=== PATIENT | male | born 1945 | race Caucasian/White ===

== ENCOUNTER → 2020-05-28 07:08 | Outpatient (CLI) | payer OTHER, SELFPAY ==
[2020-05-19 09:28] VITALS: BMI 26.2
--- NOTE | 2020-05-28 07:09 | ECHOD_ITS ---
Reason For Study: CAD/ASHD Procedure This was a 2D Doppler, Color Flow transthoracic echocardiogram. Exam performed in department. Left Ventricle Normal LV size. The estimated ejection fraction is 50 %. Mild segmental systolic dysfunction (see wall motion). Stage 1 diastolic dysfunction. Mid-Inferior: Akinetic. Mid-Posterior: Hypokinetic. The rest of the wall segments are normal. Right Ventricle Normal RV size. Normal systolic function. Atria Normal left atrium. Normal right atrium. Mitral Valve There is mild mitral annular calcification. Mild (1+) eccentric mitral valve insufficiency. Tricuspid Valve Normal tricuspid valve. Aortic Valve Trisinus/trileaflet aortic valve. Pulmonic Valve Normal pulmonic valve. Great Vessels Normal aortic root. The pulmonary artery is normal size. Normal inferior vena cava. Pericardium/Pleural No pericardial effusion. MMode/2D Measurements & Calculations LVIDd: 5.4 cm IVSd: 1.1 cm Ao root diam: 3.0 cm LVIDs: 4.0 cm LVPWd: 0.90 cm RVDd: 3.2 cm FS: 26.1 % LAV(MOD-bp): 38.7 ml LVAd ap4: 34.5 cm2 SV(MOD-sp4): 62.0 ml LAV(MOD-bp) Indexed: 20.7 ml/m2 EDV(MOD-sp4): 117.7 ml LAV(MOD-sp2): 46.6 ml EDV(sp4-el): 120.6 ml LAV(MOD-sp4): 29.2 ml LVAs ap4: 21.6 cm2 ESV(MOD-sp4): 55.6 ml ESV(sp4-el): 54.5 ml EF(MOD-sp4): 52.7 % EF(sp4-el): 54.8 % SV(sp4-el): 66.1 ml LA A4 area: 12.2 cm2 LA dimension(2D): 4.0 cm RA A4 area: 14.1 cm2 Doppler Measurements & Calculations MV E max endy: 69.8 cm/sec Lat Peak E' Endy: 8.6 cm/sec Med Peak E' Endy: 4.4 cm/sec MV A max endy: 86.8 cm/sec E/E' lat: 8.1 E/E' med: 15.9 MV E/A: 0.80 Ao V2 max: 121.0 cm/sec LV V1 max: 68.3 cm/sec PA V2 max: 137.7 cm/sec Ao max P.9 mmHg LV V1 max P.9 mmHg Ao V2 mean: 80.1 cm/sec Ao mean P.8 mmHg Ao V2 VTI: 28.1 cm Interpretation Summary Normal LV size. The estimated ejection fraction is 50 %. Mild segmental systolic dysfunction (see wall motion). Stage 1 diastolic dysfunction. Compared to previous study, the left ventricular systolic function has improved.. Ordering Physician: Elvin Hansen Referring Physician: Ric Callaway Performed By: Edwina Davalos, KELSEY, RVT
--- NOTE | 2020-05-28 12:27 | STRESSREP ---
Stress Test Report Exercise myocardial perfusion stress test. 74-year-old man with history of coronary artery disease status post angioplasty and stent. Medications aspirin Multivite amlodipine atorvastatin. Stress protocol: Resting EKG demonstrates normal sinus rhythm with a rate of 57 bpm normal intervals are noted resting blood pressure is 132/70 mmHg. The patient exercised according to regular Fei protocol for a total duration of 7 minutes. The maximum heart rate attained was 134 bpm which was 90% of maximum predicted heart rate the maximum workload was 8.5 metabolic equivalents. At rest there were no ST or T wave changes noted to suggest ischemia at peak exercise upsloping ST changes only were noted we did not meet the criteria for ischemia. No clinical angina was noted. The resting blood pressure was 132/70 with a peak blood pressure 164/78 mmHg. The test was terminated due to dyspnea. Occasional premature ventricular complexes were noted. Myocardial perfusion protocol. 11.5 mCi of technetium 99m sestamibi was injected at rest. The patient exercised according to regular Fei protocol for 7 minutes and at peak exercise 33.1 mCi of technetium 99m sestamibi was injected stress images were obtained stress and rest images were reconstructed and compared in the short axis vertical long horizontal long axis. Gated images were also obtained Perfusion SPECT analysis: Review of the images demonstrate normal cardiac silhouette size. There is a medium to large size defect noted involving the inferior wall. This is present on the stress images. The other stroud appear to be normally perfused. 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 Minimal improvement is noted to suggest ischemia. Gated SPECT analysis: The gated ejection fraction is 54%. Conclusion: Exercise myocardial perfusion stress test with evidence of moderate inferior infarct. No significant ischemia noted. Minimal blair-infarct ischemia present. Preserved ejection fraction. No angina noted.
== END ==
PROVIDERS: PCP Family Medicine; Referring Provider Internal Medicine Cardiovascular Disease; Visit Provider Internal Medicine Cardiovascular Disease
DX: I25.10 Atherosclerotic heart disease of native coronary artery without angina pectoris (principal); Z95.5 Presence of coronary angioplasty implant and graft
CPT/HCPCS: 78452; 93017; 93306; A9500; A4216

== ENCOUNTER → 2021-02-03 09:57 | Outpatient (CLI) | payer OTHER, SELFPAY ==
[2021-01-25 09:10] VITALS: BMI 26.2
== END ==
PROVIDERS: PCP Internal Medicine; Referring Provider Nurse Practitioner Family; Visit Provider Nurse Practitioner Family
DX: I25.10 Atherosclerotic heart disease of native coronary artery without angina pectoris (principal); I25.5 Ischemic cardiomyopathy; I10 Essential (primary) hypertension; E78.5 Hyperlipidemia, unspecified; Z95.5 Presence of coronary angioplasty implant and graft
CPT/HCPCS: 93225; 93226

== ENCOUNTER → 2021-02-24 15:10 | Outpatient (CLI) | payer OTHER, SELFPAY | PROVIDERS: PCP Internal Medicine; Referring Provider Physician Assistant Medical; Visit Provider Physician Assistant Medical | DX: U07.1 COVID-19 (principal) | CPT/HCPCS: 87635; C9803; U0005; U0003 ==

== ENCOUNTER 2021-02-25 16:45 | Outpatient (CLI) | payer OTHER, SELFPAY ==
[2021-02-25] MEDS: 0.9% Saline Lock 10 ML Syringe IV (16:59)
[2021-02-25 17:03] VITALS: BP 154/87; PULSE 63; RESP 16; TEMP 36.9; O2SAT 97; BMI 25.8
[2021-02-25 17:55] VITALS: BP 154/87; PULSE 63; RESP 16; TEMP 36.7; O2SAT 97
[2021-02-25 18:57] VITALS: BP 155/82; PULSE 68; RESP 16; TEMP 37.1; O2SAT 97
== END 2021-02-25 18:59 | disposition home or self-care (01) ==
LOC: MS2OUT 16:46 → MS2 16:46
PROVIDERS: PCP Internal Medicine; Referring Provider Nurse Practitioner Adult Health; Visit Provider Nurse Practitioner Adult Health
DX: Z23 Encounter for immunization (principal); U07.1 COVID-19
CPT/HCPCS: J7050; M0243; A4216; Q0244

== ENCOUNTER 2021-08-13 09:29 | Outpatient (CLI) | payer OTHER, SELFPAY ==
[2021-08-13 11:04] LABS: Microalbumin,Random Urine 9.3 mg/L (NO RANGE EST.)
[2021-08-13 11:07] LABS: Thyroid Stim Hormone (TSH) 1.31 uIU/mL (0.358-3.74)
== END 2021-08-13 23:59 | disposition home or self-care (01) ==
PROVIDERS: PCP Internal Medicine; Visit Provider Nurse Practitioner Family
DX: R00.1 Bradycardia, unspecified (principal); E11.9 Type 2 diabetes mellitus without complications; I49.3 Ventricular premature depolarization
CPT/HCPCS: 36415; 82043; 84439; 84443; 93225; 93226

== ENCOUNTER → 2021-11-19 | Outpatient (CLI) | payer OTHER, SELFPAY ==
--- NOTE | 2021-11-19 09:58 | RAD_ITS ---
STUDY: X-RAY CHEST REASON FOR EXAM: Male, 76 years old. Amiodarone therapy TECHNIQUE: PA and lateral views of the chest. COMPARISON: Comparison is made with prior study dated 05/02/2017. FINDINGS: Hyperinflation. Scattered calcified granulomas. There is no demonstrated pleural abnormality. Normal size heart. Calcified bilateral hilar lymph nodes. Normal visualized pulmonary arteries. There is atherosclerotic tortuosity of the aortic arch and descending thoracic aorta. There are degenerative changes of the visualized thoracic spine. Normal visualized ribs, clavicles, and shoulders. There is no demonstrated abnormality of the visualized soft tissue structures of the upper abdomen. RAD/Chest PA and Lateral IMPRESSION: No acute abnormality is seen. Electronically Signed: Kit Hoskins MD at 14:19 EDT ,
== END | disposition home or self-care (01) ==
LOC: RAD 09:53
PROVIDERS: PCP Internal Medicine; Referring Provider Nurse Practitioner Gerontology; Visit Provider Nurse Practitioner Gerontology
DX: Z79.899 Other long term (current) drug therapy (principal)
CPT/HCPCS: 71046

== ENCOUNTER → 2021-11-22 | Outpatient (CLI) | payer OTHER, SELFPAY ==
--- NOTE | 2021-11-22 12:25 | PFT ---
INTRODUCTION: The patient is a 76-year-old male that presents for pulmonary function studies secondary to a diagnosis of long-term medication use. Respiratory therapy reported good patient effort. Testing was ordered without bronchodilators. INTERPRETATION: Forced expiration spirometry demonstrates no evidence of a large airways obstructive ventilatory defect. Spirograms are of good quality and plateau normally. Body plethysmography was performed and reveals lung volumes to be within normal limits. Diffusing capacity by single breath CO is also within normal limits. IMPRESSION: Grossly normal pulmonary function studies.
== END | disposition home or self-care (01) ==
LOC: PSN 06:58
PROVIDERS: PCP Internal Medicine
DX: I49.9 Cardiac arrhythmia, unspecified (principal)
CPT/HCPCS: 93225; 93226; 94010; 94726; 94729

== ENCOUNTER → 2023-02-13 | Outpatient (CLI) | payer OTHER, SELFPAY ==
--- NOTE | 2023-02-14 14:42 | PFTCOMP ---
COMPLETE PULMONARY FUNCTION TEST INTERPRETATION Brief HPI: Patient is a 77-year-old male, currently under the care of myself, who presents to [facility] for complete pulmonary function tests secondary to diagnosis of amiodarone use. Respiratory therapist reports good effort and reproducible results. Interpretation: Forced expiration spirometry shows a mild large airways obstructive ventilatory defect with an FEV1 of 112% predicted. There is no significant bronchodilator response by strict ATS criteria. Spirograms are of good quality and plateau slowly, indicating slowly emptying areas of the lungs. The respiratory flow volume loop shows decreased expiratory flow rates at high lung volumes consistent with small airways obstruction. Lung volumes by body plethysmography show a normal total lung capacity at 7.24 L, 111% predicted. All other lung volumes are within normal limits. Diffusion capacity by carbon monoxide is decreased at 72% predicted. The airway resistance is normal. No previous pulmonary function tests were available for review. Impression: Irreversible mild large airways obstructive ventilatory defect with a symmetric reduction diffusion capacity
== END | disposition home or self-care (01) ==
LOC: PSN 10:24
PROVIDERS: PCP Internal Medicine; Referring Provider Internal Medicine Critical Care Medicine; Visit Provider Internal Medicine Critical Care Medicine
DX: Z79.899 Other long term (current) drug therapy (principal)
CPT/HCPCS: 94060; 94726; 94729

== ENCOUNTER → 2023-05-22 | Outpatient (CLI) | payer OTHER, SELFPAY ==
--- NOTE | 2023-05-22 09:40 | RAD_ITS ---
STUDY: X-RAY CHEST REASON FOR EXAM: Male, 77 years old. Amiodarone TECHNIQUE: PA and lateral COMPARISON: November 19, 2021 FINDINGS: The lungs are clear and expanded. Calcified right infrahilar granulomata There is no demonstrated pleural abnormality. Normal size heart. Normal mediastinum and alexey. Normal visualized pulmonary arteries. Normal visualized aortic arch and descending thoracic aorta. Dorsal spine and shoulders demonstrate degenerative changes. Normal visualized ribs, clavicles, and shoulders. There is no demonstrated abnormality of the visualized soft tissue structures of the upper abdomen. RAD/Chest PA and Lateral IMPRESSION: Old granulomatous disease. No acute cardiopulmonary pathology. Electronically Signed: Stanislav Palmer MD at 22:56 EST ,
== END | disposition home or self-care (01) ==
LOC: RAD 09:36
PROVIDERS: PCP Internal Medicine; Referring Provider Nurse Practitioner Gerontology; Visit Provider Nurse Practitioner Gerontology
DX: Z79.899 Other long term (current) drug therapy (principal)
CPT/HCPCS: 71046

== ENCOUNTER → 2024-02-23 | Outpatient (CLI) | payer OTHER, SELFPAY ==
--- NOTE | 2024-02-23 17:23 | STRESSREP_ITS ---
Stress Test Report Pharmacologic myocardial perfusion stress test. 78-year-old male with a history of coronary artery disease Resting EKG demonstrates sinus bradycardia with a rate of 53 bpm. Resting blood pressure is 122/72 mmHg. 0.4 mg of regadenoson was infused per usual protocol followed by rapid intravenous saline flush injection. Continuous EKG monitoring was performed. The maximum heart rate was 62 bpm which was 43% of max impacted heart rate the maximum workload was 1 metabolic equivalent. At rest there were no ST or T wave changes noted to suggest ischemia and at peak infusion nonspecific ST changes were noted which did not meet the criteria for ischemia. No clinical angina is noted. The final blood pressure was 112/68 mmHg. Myocardial perfusion protocol. 11.7 mCi of technetium 99m sestamibi was injected at rest. 0.4 mg of regadenoson was infused per usual protocol. At peak infusion 33.7 mCi of technetium 99m sestamibi was injected stress images were obtained stress and rest images were reconstructed and compared in the short axis vertical long and horizontal long axis. Gated images were also obtained. Perfusion SPECT analysis: Review of the stress images demonstrate normal uptake of tracer noted in all areas of the myocardium. There is however a defect noted in the basal to mid inferior wall. The resting images similar demonstrated normal uptake of tracer noted in all areas of the myocardium. Defect is present in the basal to mid inferior wall suggestive of a previous basal to mid inferior infarct. No ischem ia is noted. Gated SPECT analysis: The gated ejection fraction is 59%. Conclusion: Normal pharmacologic myocardial perfusion stress test. Preserved ejection fraction. Basal to mid inferior infarct no ischemia present
== END | disposition home or self-care (01) ==
PROVIDERS: PCP Internal Medicine; Referring Provider Nurse Practitioner Gerontology; Visit Provider Nurse Practitioner Gerontology
DX: I25.10 Atherosclerotic heart disease of native coronary artery without angina pectoris (principal); Z95.5 Presence of coronary angioplasty implant and graft; Z79.899 Other long term (current) drug therapy
CPT/HCPCS: 78452; 93017; 94060; 94726; 94729; A9500; A4216; J2785

== ENCOUNTER → 2024-10-16 | Outpatient (CLI) | payer OTHER, SELFPAY | END | disposition home or self-care (01) | LOC: PSN 07:37 | PROVIDERS: PCP Internal Medicine; Referring Provider Nurse Practitioner Family; Visit Provider Nurse Practitioner Family | DX: I25.5 Ischemic cardiomyopathy (principal); I49.3 Ventricular premature depolarization; Z95.5 Presence of coronary angioplasty implant and graft; Z79.899 Other long term (current) drug therapy | CPT/HCPCS: 93225; 93226 ==

== ENCOUNTER → 2024-10-17 | Outpatient (CLI) | payer OTHER, SELFPAY ==
--- NOTE | 2024-10-17 08:37 | ECHOD_ITS ---
Reason For Study Reason For Study: PVC BURDEN Procedure This was a 2D Doppler, Color Flow transthoracic echocardiogram. Exam performed in department. Left Ventricle Normal LV size. The estimated ejection fraction is 60 %. Mild segmental systolic dysfunction (see wall motion). Stage 1 diastolic dysfunction. Infero-Basal: Akinetic. Mid-Inferior: Akinetic. Posterior-Basal: Hypokinetic. Basal inferoseptal: Hypokinetic. Right Ventricle Normal RV size. Normal systolic function. Mitral Valve Normal mitral valve. Mild (1+) eccentric mitral valve insufficiency. Tricuspid Valve Normal tricuspid valve. Aortic Valve Trisinus/trileaflet aortic valve. Pulmonic Valve Normal pulmonic valve. Great Vessels Normal aortic root. The pulmonary artery is normal size. Normal inferior vena cava. Pericardium/Pleural No pericardial effusion. MMode/2D Measurements & Calculations LVIDd: 5.6 cm IVSd: 0.97 cm LVOT diam: 2.0 cm LVIDs: 4.4 cm LVPWd: 0.85 cm LVOT area: 3.1 cm2 RVDd: 3.0 cm FS: 22.3 % Ao root diam: 3.0 cm LAV(MOD-bp): 39.2 ml LVAd ap4: 38.8 cm2 LAV(MOD-bp) Indexed: 21.3 ml/m2 LVLd ap4: 8.7 cm LAV(MOD-sp2): 40.1 ml EDV(MOD-sp4): 141.9 ml LAV(MOD-sp4): 36.9 ml EDV(sp4-el): 146.8 ml LVAs ap4: 20.5 cm2 LVLs ap4: 6.9 cm ESV(MOD-sp4): 53.1 ml ESV(sp4-el): 51.6 ml EF(MOD-sp4): 62.6 % EF(sp4-el): 64.9 % SV(MOD-sp4): 88.7 ml SV(sp4-el): 95.3 ml LA A4 area: 14.7 cm2 SI(MOD-sp4): 48.2 ml/m2 LA dimension(2D): 3.3 cm RA A4 area: 15.8 cm2 Time Measurements MV dec time: 0.19 sec Doppler Measurements & Calculations MV E max endy: 81.1 cm/sec Lat Peak E' Endy: 11.6 cm/sec Med Peak E' Endy: 8.1 cm/sec MV A max endy: 91.8 cm/sec E/E' lat: 7.0 E/E' med: 10.0 MV E/A: 0.88 MV V2 max: 109.5 cm/sec Ao V2 max: 93.1 cm/sec MV max P.8 mmHg MV dec slope: 417.2 cm/sec2 Ao max P.5 mmHg MV V2 mean: 68.2 cm/sec Ao V2 mean: 63.2 cm/sec MV mean P.1 mmHg Ao mean P.8 mmHg MV V2 VTI: 40.9 cm Ao V2 VTI: 24.9 cm AV (velocity ratio): 1.1 MVA(VTI): 2.1 cm2 CHAVO(I,D): 3.4 cm2 CHAVO(V,D): 3.7 cm2 LV V1 max: 112.3 cm/sec SV(LVOT): 84.5 ml PA V2 max: 137.7 cm/sec LV V1 max P.0 mmHg PA V2 mean: 98.2 cm/sec LV V1 mean P.6 mmHg LV V1 mean: 75.0 cm/sec LV V1 VTI: 27.6 cm ECHO/Echo Complete Interpretation Summary The estimated ejection fraction is 60 %. Normal LV size. Mild segmental systolic dysfunction (see wall motion). Stage 1 diastolic dysfunction. Ordering Physician: Vipin Davalos Referring Physician: Vipin Davalos Performed By: Gabriela Tay RCS
== END | disposition home or self-care (01) ==
LOC: CVS 08:36
PROVIDERS: PCP Internal Medicine; Referring Provider Nurse Practitioner Family; Visit Provider Nurse Practitioner Family
DX: I25.5 Ischemic cardiomyopathy (principal); I49.3 Ventricular premature depolarization; Z95.5 Presence of coronary angioplasty implant and graft; Z79.899 Other long term (current) drug therapy
CPT/HCPCS: 93306